=== PATIENT | male | born 1985 | race Caucasian/White ===

== ENCOUNTER 2016-11-30 09:46 | Outpatient (CLI) | payer OTHER ==
[2016-11-30 10:05] VITALS: BP 135/98
--- NOTE | 2016-11-30 10:15 | NUR ---
PT HERE FOR PHLEBOTOMY HEP LOC STARTED LEFT FOREARM PT VIRGIL PROCEDURE WELL PT DISCHARGED AMBULATORY
== END 2016-11-30 10:18 | disposition home or self-care (01) ==
LOC: SDP SRH 09:46 → OB SRH 09:48 → SDP SRH 10:18
PROC: 059Y3ZZ Drainage of Upper Vein, Percutaneous Approach (ICD-10-PCS; principal; 2016-11-30)
DX: D75.1 Secondary polycythemia (principal)